=== PATIENT | male | born 2000 | race Native Hawaiian/Other Pacific Islander ===

== ENCOUNTER 2019-08-29 20:48 | Emergency (ER) | payer OTHER ==
[~2019-08-29] VITALS: Ht 185.4 cm; Wt 127.0 kg
[~2019-08-29 20:48] MED LIST: ALBU4 PO; ALBU90OI; ALBU90OI INH; ALBU90OI6 INH; AMOX50SU PO; AZIT250 PO; CODACEE120 PO; Ciprodex Otic7.5 ML LEFTEAR; FLOVENT; FLUSAL1005 IH; FLUT110OIA IH; FLUT44OIA IH; HYDCOR1TC TOP; MONT5TCH PO; Norco 5-325 Ta1 EACH PO; PERM5TC TOP; PRED10 PO; PRED20 PO
== END 2019-08-29 21:24 | disposition home or self-care (01) ==
LOC: ER 20:48
DX: S63.501A Unspecified sprain of right wrist, initial encounter (principal); W22.8XXA Striking against or struck by other objects, initial encounter; Z91.048 Other nonmedicinal substance allergy status; Z91.012 Allergy to eggs; Z91.010 Allergy to peanuts; Z91.018 Allergy to other foods; J45.909 Unspecified asthma, uncomplicated
CPT/HCPCS: 29125; 99283-25; L3917

== ENCOUNTER 2021-08-07 17:25 | Emergency (ER) | payer OTHER ==
[~2021-08-07] VITALS: Ht 182.9 cm; Wt 154.2 kg
[2021-08-07] MEDS ORDERED: Ventolin5 MG/1 ML INH (22:25)
== END 2021-08-07 22:33 | disposition home or self-care (01) ==
LOC: ER 17:25
DX: U07.1 COVID-19 (principal); J45.909 Unspecified asthma, uncomplicated; Z23 Encounter for immunization; Z91.048 Other nonmedicinal substance allergy status; Z91.012 Allergy to eggs; Z91.010 Allergy to peanuts; Z91.018 Allergy to other foods; Z79.899 Other long term (current) drug therapy
CPT/HCPCS: 71045; 94640; 99284-25; J1100; M0243; Q0243

== ENCOUNTER 2022-03-03 18:04 | Inpatient (IN) | payer OTHER ==
[~2022-03-03] VITALS: Ht 182.9 cm; Wt 152.5 kg
[~2022-03-03 18:04] MED LIST changes: +Ventolin5 MG/1 ML INH
[2022-03-03 18:58] LABS: Alanine Aminotransfer (ALT/SGP 33 U/L (12-78); Albumin, Blood 3.7 g/dL (3.4-5.0); Albumin/Globulin Ratio 0.7 (0.8-1.8); Alk Phos 72 U/L (50-136); Anion Gap 6 mmol/L (6-16); Aspartate Aminotrans (AST/SGOT 18 U/L (12-37); Bilirubin, Total 1.1 mg/dL (0.1-1.0); Blood Urea Nitrogen 10 mg/dL (8-24); Bun/Creatinine Ratio 13.5 (12.0-20.0); CO2, Blood 27 mmol/L (21-32); Calcium, Blood 9.6 mg/dL (8.5-10.1); Chloride, Blood 104 mmol/L (98-108); Creatinine, Blood 0.74 mg/dL (0.60-1.20); Globulin, Blood 5.2 g/dL (2.2-4.0); Glomerular Filtration Rate >60 (60-); Glucose, Blood 103 mg/dL (70-99); Potassium, Blood 3.5 mmol/L (3.5-5.5); Sodium, Blood 137 mmol/L (136-145); Total Protein, Blood 8.9 g/dL (6.4-8.2)
[2022-03-03 19:10] LABS: BASOPHILS ABSOLUTE AUTO 0.06 K/mm3 (0.00-0.23); BASOPHILS PERCENT AUTO 0 % (0-2); EOSINOPHILS ABSOLUTE AUTO 0.15 K/mm3 (0.00-0.68); EOSINOPHILS PERCENT AUTO 1 % (0-6); Hemoglobin 15.3 g/dL (13.5-17.5); IMMATURE GRAN ABSOLUTE AUTO 0.07 K/mm3 (0.00-0.10); IMMATURE GRAN PERCENT AUTO 0 % (0-1); LYMPHOCYTES ABSOLUTE AUTO 2.01 K/mm3 (0.84-5.20); LYMPHOCYTES PERCENT AUTO 11 % (21-46); MONOCYTES ABSOLUTE AUTO 1.09 K/mm3 (0.16-1.47); MONOCYTES PERCENT AUTO 6 % (4-13); Mean Corpuscular HGB 26.9 pg (26.0-34.0); Mean Corpuscular HGB Conc 32.6 g/dL (31.5-36.5); Mean Corpuscular Volume 83 fL (80-100); Mean Platelet Volume 9.5 fL (9.1-12.4); NEUTROPHILS ABSOLUTE AUTO 14.26 K/mm3 (1.96-9.15); NEUTROPHILS PERCENT AUTO 81 % (41-73); Platelet Count 376 K/mm3 (150-400); RDW Coefficient Variation 13.5 % (11.7-14.2); RDW Standard Deviation 41.1 fL (35.1-46.3); Red Blood Cell Count 5.68 M/mm3 (4.30-5.90); White Blood Cell Count 17.64 K/mm3 (4.00-11.30)
[2022-03-04] MEDS ORDERED: DULERA 100 MCG/13 GM INH (00:55)
--- NOTE | 2022-03-04 05:07 | NUR ---
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 PT ADMITTED FOR PERFORATED DIVERTICULITIS. AAOX4 AND INDEPENDENT IN ROOM. PT REPORTING 4/10 LLQ PAIN, STATING IT IS TOLERABLE. PT HAS SLEPT WELL MOST OF THE NIGHT. PER ER REPORT, PT HAD SMALL REACTION TO IV MORPHINE. PT REPORTED REDNESS AND ITCHING TO IV SITE RIGHT AFTER MED WAS ADMINISTERED. PT HAD ORDER FOR IV DILAUDID WHEN ARRIVED TO THE FLOOR. NOTIFIED PHARMACIST SINCE MORPHINE WAS NOT LISTED IN ALLERGIES YET. PHARMACIST RECOMMENDED GETTING ORDER FOR DIFFERENT PAIN MEDS. SPOKE WITH DR WOLF WHO GAVE ORDER FOR FENTANYL AND TORADOL. PT HAS BEEN NPO. DR WOLF TO ASSESS PT LATER THIS AM.
[2022-03-04 05:48] LABS: Source, Urine Clean Catch
[2022-03-04 05:57] LABS: Bilirubin, Urine Neg (Neg); Blood, Urine 1+ (Neg); Glucose Qualitative, Urine Neg (Neg); Ketones, Urine 2+ (Neg); Leukocyte Esterase, Urine Neg (Neg); Nitrite, Urine Neg (Neg); Protein, Urine 1+ (Neg); Urobilinogen, Urine 3+ (Normal)
[2022-03-04 05:58] LABS: Appearance, Urine Clear (Clear); Color, Urine Amber (P-Yellow)
[2022-03-04 06:31] LABS: Bacteria Not Seen /hpf; Red Blood Cells, Urine 0-2 /hpf (0-2); Squamous Epithelial Cells Not Seen /hpf (Few); White Blood Cells, Urine Not Seen /hpf (0-5)
--- NOTE | 2022-03-04 16:49 | NUR ---
SHIFT SUMMARY Pt is a/o x 4. He reports mild pain in his LLQ which was relieved with the PRN pain meds. He has been resting all day. His mom has been very upset that they had to wait to see the surgeon but some education was done about schedules and rounding and she finally took a break from being at the bedside to go home for clean clothes. He has been NPO all day. Dr Acuña just came by to see him and said that at this point he will not be going to surgery and can start having clear liquids. The plan is for him to continue with IV ABO and see how he feels tomorrow. The pt was agreeable to this plan and is on the phone with his mom now updating her. He now has some drink options at the bedside. He has been independent in his room. He has his call light and uses it when needed.
--- NOTE | 2022-03-05 04:32 | NUR ---
SALES DEVELOPMENT COORDINATOR SUMMARY NO ACUTE CHANGES THIS SHIFT. PT TOLERATING CLEAR LIQUID DIET. LLQ PAIN HAS BEEN WELL MANAGED WITH IV TORADOL 15 MG. CONTINUING ZOSYN INFUSIONS Q6H. VSS, WILL CONTINUE TO MONITOR.
[2022-03-05 04:44] LABS: BASOPHILS ABSOLUTE AUTO 0.04 K/mm3 (0.00-0.23); BASOPHILS PERCENT AUTO 0 % (0-2); EOSINOPHILS PERCENT AUTO 3 % (0-6); Hematocrit 41.2 % (37.0-53.0); Hemoglobin 13.5 g/dL (13.5-17.5); IMMATURE GRAN ABSOLUTE AUTO 0.03 K/mm3 (0.00-0.10); IMMATURE GRAN PERCENT AUTO 0 % (0-1); LYMPHOCYTES ABSOLUTE AUTO 2.63 K/mm3 (0.84-5.20); LYMPHOCYTES PERCENT AUTO 26 % (21-46); MONOCYTES ABSOLUTE AUTO 0.73 K/mm3 (0.16-1.47); MONOCYTES PERCENT AUTO 7 % (4-13); Mean Corpuscular HGB 27.4 pg (26.0-34.0); Mean Corpuscular HGB Conc 32.8 g/dL (31.5-36.5); Mean Corpuscular Volume 84 fL (80-100); Mean Platelet Volume 9.5 fL (9.1-12.4); NEUTROPHILS ABSOLUTE AUTO 6.39 K/mm3 (1.96-9.15); NEUTROPHILS PERCENT AUTO 63 % (41-73); Platelet Count 331 K/mm3 (150-400); RDW Coefficient Variation 13.2 % (11.7-14.2); RDW Standard Deviation 39.8 fL (35.1-46.3); Red Blood Cell Count 4.93 M/mm3 (4.30-5.90); White Blood Cell Count 10.12 K/mm3 (4.00-11.30)
[2022-03-05 05:07] LABS: Anion Gap 7 mmol/L (6-16); Blood Urea Nitrogen 14 mg/dL (8-24); Bun/Creatinine Ratio 15.6 (12.0-20.0); CO2, Blood 29 mmol/L (21-32); Calcium, Blood 9.3 mg/dL (8.5-10.1); Chloride, Blood 104 mmol/L (98-108); Glomerular Filtration Rate >60 (60-); Glucose, Blood 75 mg/dL (70-99); Potassium, Blood 3.7 mmol/L (3.5-5.5); Sodium, Blood 140 mmol/L (136-145)
--- NOTE | 2022-03-05 17:21 | NUR ---
SUMMARY DENIED ANY NEED FOR PAIN MEDS T/O SHIFT, REPORTS ABD PAIN IS "BETTER" TOLERATED FULL LIQUID FAIRLY WELL, REPORTS HAD A BM TODAY, NO NAUSEA, AMBULATING DOWN THE HALLS, NO ACUTE CHANGES THIS SHIFT.
--- NOTE | 2022-03-06 05:15 | NUR ---
PLASTERER ROUGH SUMMARY NO ACUTE CHANGES OVERNIGHT. VSS. PATIENT IS ALERT AND ORIENTED X4. HE HAS BEEN TOLERATING A FULL LIQIUD DIET. PATIENT IS RECIVEING IV ANTIBIOTICS. HE REPORTS 3-7/10 PAIN IN THE ABDOMEN AND WAS MEDICATED ONCE WITH IV TORADOL. HE DENIES NAUSEA OR VOMITING.
[2022-03-06] MEDS ORDERED: METR500 PO (11:00)
[2022-03-06] MEDS ORDERED: LEVFLO500 PO (11:01)
--- NOTE | 2022-03-06 11:19 | NUR ---
DISCHARGE: PT DC TO HOME AT THIS TIME. VERBAL UNDERSTANDING OF INSTRUCTIONS, MEDICATIONS AND FOLLOW UP. [facility] CALLED TO [facility]. IV DC'D WNL. PT LEFT AMBULATORY TO [facility].
== END 2022-03-06 11:23 | disposition home or self-care (01) | DRG 392 ==
LOC: ER 18:04 → SURS 22:00 → ER 23:52 → SURS 03-04 00:40
PROVIDERS: Physician Assistant; Surgery; ADMIT Surgery
DX: K57.20 Diverticulitis of large intestine with perforation and abscess without bleeding (principal); J45.909 Unspecified asthma, uncomplicated; Z91.09 Other allergy status, other than to drugs and biological substances; Z91.012 Allergy to eggs; Z91.010 Allergy to peanuts; Z79.899 Other long term (current) drug therapy
CPT/HCPCS: 36415; 74177; 80048; 80053; 81001; 83605; 83690; 85025; 87040; 94760; 96365-59; 96366; 96375; 96376; 99285-25; A9270; G0378; J1200; J1885; J2270; J2405; J2543; J3010; J7030; J7040; J7120; Q9967

== ENCOUNTER 2022-05-03 00:50 | Emergency (ER) | payer OTHER ==
[~2022-05-03] VITALS: Ht 182.9 cm; Wt 136.1 kg
[~2022-05-03 00:50] MED LIST changes: +DULERA 100 MCG/13 GM INH; +LEVFLO500 PO; +METR500 PO
[2022-05-03 03:35] LABS: BASOPHILS ABSOLUTE AUTO 0.05 K/mm3 (0.00-0.23); BASOPHILS PERCENT AUTO 0 % (0-2); EOSINOPHILS PERCENT AUTO 2 % (0-6); Hematocrit 47.5 % (37.0-53.0); Hemoglobin 15.9 g/dL (13.5-17.5); IMMATURE GRAN ABSOLUTE AUTO 0.03 K/mm3 (0.00-0.10); IMMATURE GRAN PERCENT AUTO 0 % (0-1); LYMPHOCYTES ABSOLUTE AUTO 2.42 K/mm3 (0.84-5.20); LYMPHOCYTES PERCENT AUTO 18 % (21-46); MONOCYTES ABSOLUTE AUTO 0.81 K/mm3 (0.16-1.47); MONOCYTES PERCENT AUTO 6 % (4-13); Mean Corpuscular HGB 27.4 pg (26.0-34.0); Mean Corpuscular HGB Conc 33.5 g/dL (31.5-36.5); Mean Corpuscular Volume 82 fL (80-100); Mean Platelet Volume 9.2 fL (9.1-12.4); NEUTROPHILS ABSOLUTE AUTO 9.97 K/mm3 (1.96-9.15); NEUTROPHILS PERCENT AUTO 74 % (41-73); Platelet Count 362 K/mm3 (150-400); RDW Coefficient Variation 13.7 % (11.7-14.2); RDW Standard Deviation 40.2 fL (35.1-46.3); White Blood Cell Count 13.48 K/mm3 (4.00-11.30)
[2022-05-03 04:01] LABS: Albumin, Blood 4.2 g/dL (3.4-5.0); Bilirubin, Total 0.8 mg/dL (0.1-1.0); Bun/Creatinine Ratio 26.4 (12.0-20.0); Calcium, Blood 9.3 mg/dL (8.5-10.1); Creatinine, Blood 0.76 mg/dL (0.60-1.20); Globulin, Blood 4.3 g/dL (2.2-4.0); Potassium, Blood 3.5 mmol/L (3.5-5.5); Total Protein, Blood 8.5 g/dL (6.4-8.2)
[2022-05-03 04:49] LABS: Source, Urine Clean Catch
[2022-05-03 05:02] LABS: Bilirubin, Urine Neg (Neg); Blood, Urine Neg (Neg); Glucose Qualitative, Urine Neg (Neg); Ketones, Urine Neg (Neg); Leukocyte Esterase, Urine Neg (Neg); Nitrite, Urine Neg (Neg); Protein, Urine 1+ (Neg); Specific Gravity, Urine 1.015 (1.003-1.022); Urobilinogen, Urine 2+ (Normal)
[2022-05-03 05:06] LABS: Appearance, Urine Clear (Clear); Color, Urine Yellow (P-Yellow)
[2022-05-03] MEDS ORDERED: AMOCLA875 PO (05:21)
== END 2022-05-03 05:35 | disposition home or self-care (01) ==
LOC: ER 00:50
PROVIDERS: Emergency Medicine
DX: K57.32 Diverticulitis of large intestine without perforation or abscess without bleeding (principal); J45.909 Unspecified asthma, uncomplicated; Z79.899 Other long term (current) drug therapy; Z88.5 Allergy status to narcotic agent; Z91.010 Allergy to peanuts; Z91.018 Allergy to other foods; Z91.09 Other allergy status, other than to drugs and biological substances
CPT/HCPCS: 74176; 80053; 83690; 85025; A9270; J2405; J3010; J7030

== ENCOUNTER 2023-01-16 11:29 | Emergency (ER) | payer OTHER ==
[~2023-01-16] VITALS: Ht 182.9 cm; Wt 136.1 kg
[~2023-01-16 11:29] MED LIST changes: +AMOCLA875 PO
[2023-01-16 12:12] LABS: BASOPHILS ABSOLUTE AUTO 0.05 K/mm3 (0.00-0.23); BASOPHILS PERCENT AUTO 0 % (0-2); EOSINOPHILS ABSOLUTE AUTO 0.14 K/mm3 (0.00-0.68); EOSINOPHILS PERCENT AUTO 1 % (0-6); Hematocrit 49.7 % (37.0-53.0); Hemoglobin 16.8 g/dL (13.5-17.5); IMMATURE GRAN ABSOLUTE AUTO 0.03 K/mm3 (0.00-0.10); IMMATURE GRAN PERCENT AUTO 0 % (0-1); LYMPHOCYTES ABSOLUTE AUTO 2.37 K/mm3 (0.84-5.20); LYMPHOCYTES PERCENT AUTO 21 % (21-46); MONOCYTES ABSOLUTE AUTO 0.89 K/mm3 (0.16-1.47); MONOCYTES PERCENT AUTO 8 % (4-13); Mean Corpuscular HGB 28.2 pg (26.0-34.0); Mean Corpuscular HGB Conc 33.8 g/dL (31.5-36.5); Mean Corpuscular Volume 83 fL (80-100); Mean Platelet Volume 9.3 fL (9.1-12.4); NEUTROPHILS ABSOLUTE AUTO 7.96 K/mm3 (1.96-9.15); NEUTROPHILS PERCENT AUTO 70 % (41-73); Platelet Count 338 K/mm3 (150-400); RDW Coefficient Variation 12.9 % (11.7-14.2); RDW Standard Deviation 39.1 fL (35.1-46.3); Red Blood Cell Count 5.96 M/mm3 (4.30-5.90); White Blood Cell Count 11.44 K/mm3 (4.00-11.30)
[2023-01-16 12:28] LABS: Albumin, Blood 4.1 g/dL (3.4-5.0); Albumin/Globulin Ratio 0.9 (0.8-1.8); Bilirubin, Total 1.2 mg/dL (0.1-1.0); Bun/Creatinine Ratio 14.8 (12.0-20.0); Calcium, Blood 9.5 mg/dL (8.5-10.1); Creatinine, Blood 0.74 mg/dL (0.60-1.20); Globulin, Blood 4.4 g/dL (2.2-4.0); Potassium, Blood 3.8 mmol/L (3.5-5.5); Total Protein, Blood 8.5 g/dL (6.4-8.2)
[2023-01-16] MEDS ORDERED: CIPR500 PO (13:29)
[2023-01-16] MEDS ORDERED: PROBIOTIC1 EA13 PO (13:29)
[2023-01-16] MEDS ORDERED: METR500 PO (13:29)
== END 2023-01-16 14:03 | disposition home or self-care (01) ==
LOC: ER 11:29
PROVIDERS: Emergency Medicine
DX: K57.32 Diverticulitis of large intestine without perforation or abscess without bleeding (principal); J45.909 Unspecified asthma, uncomplicated; Z88.5 Allergy status to narcotic agent; Z91.09 Other allergy status, other than to drugs and biological substances; Z91.010 Allergy to peanuts; Z79.899 Other long term (current) drug therapy
CPT/HCPCS: 36415; 74177; 80053; 85025; 96361; 96374-59; 96375; 99284-25; A9270; J2405; J3010; J7030; Q9967

== ENCOUNTER 2025-08-24 10:59 | Emergency (ER) | payer OTHER ==
[~2025-08-24] VITALS: Ht 182.9 cm; Wt 145.2 kg
[~2025-08-24 10:59] MED LIST changes: +CIPR500 PO; +LIDO700A20 TOP; +PROBIOTIC1 EA13 PO; +Percocet 5-3251 EACH PO; +TIZA4 PO
[2025-08-24 11:40] LABS: BASOPHILS ABSOLUTE AUTO 0.04 K/mm3 (0.00-0.23); BASOPHILS PERCENT AUTO 0 % (0-2); EOSINOPHILS ABSOLUTE AUTO 0.19 K/mm3 (0.00-0.68); EOSINOPHILS PERCENT AUTO 2 % (0-6); Hematocrit 44.8 % (37.0-53.0); Hemoglobin 15.2 g/dL (13.5-17.5); IMMATURE GRAN ABSOLUTE AUTO 0.03 K/mm3 (0.00-0.10); IMMATURE GRAN PERCENT AUTO 0 % (0-1); LYMPHOCYTES ABSOLUTE AUTO 1.74 K/mm3 (0.84-5.20); LYMPHOCYTES PERCENT AUTO 14 % (21-46); MONOCYTES ABSOLUTE AUTO 0.99 K/mm3 (0.16-1.47); MONOCYTES PERCENT AUTO 8 % (4-13); Mean Corpuscular HGB Conc 33.9 g/dL (31.5-36.5); Mean Corpuscular Volume 87 fL (80-100); NEUTROPHILS ABSOLUTE AUTO 9.52 K/mm3 (1.96-9.15); NEUTROPHILS PERCENT AUTO 76 % (41-73); NRBC ABSOLUTE 0.00 K/mm3 (0.00-0.02); NRBC Auto 0.0 /100 WBC (0.0-0.2); Platelet Count 261 K/mm3 (150-400); RDW Coefficient Variation 12.8 % (11.7-14.2); RDW Standard Deviation 40.9 fL (35.1-46.3)
[2025-08-24] MEDS ORDERED: NS 1,000 ML IV SCH (11:50)
[2025-08-24] MEDS ORDERED: Ondansetron HCl 2 MG / ML 2ML Vial IV ONE (11:50)
[2025-08-24] MEDS ORDERED: FentaNYL Citrate 50 MCG/ML 2 ML Injection IV ONE (11:50)
[2025-08-24] MEDS ORDERED: DULERA 200 MCG-13 GM (11:51)
[2025-08-24 12:08] LABS: Alanine Aminotransfer (ALT/SGP 37.0 U/L (12-78); Albumin, Blood 3.8 g/dL (3.4-5.0); Albumin/Globulin Ratio 1.0 (0.8-1.8); Anion Gap 6.0 mmol/L (3-11); Aspartate Aminotrans (AST/SGOT 16.0 U/L (12-37); Bilirubin, Total 1.1 mg/dL (0.1-1.0); Blood Urea Nitrogen 14.0 mg/dL (8-24); CO2, Blood 28.0 mmol/L (21-32); Calcium, Blood 8.9 mg/dL (8.5-10.1); Chloride, Blood 106.0 mmol/L (98-108); Creatinine, Blood 0.69 mg/dL (0.60-1.20); Globulin, Blood 3.8 g/dL (2.2-4.0); Glucose, Blood 104.0 mg/dL (70-99); Potassium, Blood 3.9 mmol/L (3.5-5.5); Sodium, Blood 136.0 mmol/L (136-145); Total Protein, Blood 7.6 g/dL (6.4-8.2)
[2025-08-24] MEDS ORDERED: EpiNEPhrine 1 MG/1 ML 1ML Vial IM ONE (12:45)
[2025-08-24] MEDS ORDERED: DiphenhydrAMINE HCl 50 MG/ML 1ML Vial IV ONE (12:45)
[2025-08-24] MEDS ORDERED: EPIPEN0.3 MG/0.3 IM (14:28)
[2025-08-24] MEDS ORDERED: AMOCLA875 PO ×2 (14:28→14:35)
[2025-08-24] MEDS ORDERED: ACET500 PO ×2 (14:28→14:35)
[2025-08-24 14:30] VITALS: BP 153/64
== END 2025-08-24 14:38 | disposition home or self-care (01) ==
LOC: ER 10:59
PROVIDERS: Student in an Organized Health Care Education/Training Program
DX: K57.32 Diverticulitis of large intestine without perforation or abscess without bleeding (principal); L29.9 Pruritus, unspecified; T50.8X5A Adverse effect of diagnostic agents, initial encounter; Z88.5 Allergy status to narcotic agent; Z91.010 Allergy to peanuts; Z79.899 Other long term (current) drug therapy; J45.909 Unspecified asthma, uncomplicated
CPT/HCPCS: 74177; 80053; 83690; 85025; 96372-59; 96374-59; 96375; 99284-25; A9270; J0166; J0169; J1200; J2919; J3010; J7030; Q9967